=== PATIENT | female | born 1935 | race Caucasian/White ===

== ENCOUNTER 2020-12-13 09:44 | Observation (INO) | payer MEDICARE, BC ==
[2020-12-13] MEDS ORDERED: fentaNYL 50 MCG/ML SDV SUBCUT ONE (10:12)
--- NOTE | 2020-12-13 10:18 | EDM.PDOC ---
ED HPI GENERAL MEDICAL PROBLEM - General Chief Complaint: Back Pain or Injury Stated Complaint: Back Pain Time Seen by Provider: 12/13/20 10:03 Source of Information: Reports: Patient - History of Present Illness INITIAL COMMENTS - FREE TEXT/NARRATIVE: Marija is an 85 y/o female who is brought to the ER via POV by a family member for low back pain. She attempted to get into see her PCP at the [facility], but the provider was out of town. She reports that 2 weeks ago she was trying to get to her phone and while using her walker, the seat wasn't completely down adn she when she sat down she fell to the floor. She did have a couple of her kids come to home to get her up. She really did not have any pain following that incident, but over the last week she has been noticing progressively more low back pain. She did try to to take acetaminophen several times yesterday with no relief of her pain. She reports the pain is in her spine region and radiates to the left. She has had some back problems in the past and seen Dr Zapata at [facility] for an epidural injection, but this has been about 3 years ago. She denies any numbness or tingling and no loss of bowel or bladder function since the fall. 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 - Related Data Allergies Allergy/AdvReac Type Severity Reaction Status Date / Time Penicillins Allergy Rash Verified 12/13/20 09:45 Home Meds: Home Meds Esomeprazole [NexIUM] 1 cap PO DAILY 05/09/16 [History] Lisinopril/Hydrochlorothiazide [Lisinopril-Hctz 20-25 mg Tab] 1 tab PO DAILY@1400 05/09/16 [History] Multivit-Min/Iron/Folic/Lutein [Centrum Silver Women Tablet] 1 tab PO DAILY@1400 05/09/16 [History] metFORMIN [Glucophage] 500 mg PO BIDMEALS 05/09/16 [History] Cholecalciferol (Vitamin D3) [Vitamin D3] 2,000 unit PO DAILY@1400 12/13/20 [History] Diltiazem [Diltiazem XR] 240 mg PO DAILY 12/13/20 [History] Fenofibrate 54 mg PO DAILY 12/13/20 [History] Sotalol HCl [Sotalol] 120 mg PO BID@12/13/20 [History] Warfarin Sodium [Jantoven] 3 mg PO SUTUTHSA@1800 12/13/20 [History] Warfarin Sodium [Jantoven] 4 mg PO MOWEFR@1800 12/13/20 [History] Past Medical History Cardiovascular History: Reports: Arrhythmia, Hypertension Gastrointestinal History: Reports: GERD Musculoskeletal History: Reports: Arthritis Endocrine/Metabolic History: Reports: Diabetes, Type II - Past Surgical History HEENT Surgical History: Reports: Adenoidectomy, Oral Surgery, Tonsillectomy GI Surgical History: Reports: Appendectomy, Cholecystectomy Social & Family History - Caffeine Use Caffeine Use: Reports: None Review of Systems - Review of Systems Review Of Systems: See Below Constitutional: Reports: No Symptoms Eyes: Reports: No Symptoms Ears: Reports: No Symptoms Nose: Reports: No Symptoms Mouth/Throat: Reports: No Symptoms Respiratory: Reports: No Symptoms Cardiovascular: Reports: No Symptoms GI/Abdominal: Reports: No Symptoms Genitourinary: Reports: No Symptoms Musculoskeletal: Reports: Back Pain Skin: Reports: No Symptoms Neurological: Reports: No Symptoms Psychiatric: Reports: No Symptoms ED EXAM, GENERAL - Physical Exam Exam: See Below General Appearance: Alert, WD/WN, No Apparent Distress (Elderly female, sitting quietly in the wheelchair at bedside.) Ears: Hearing Grossly Normal Nose: Normal Inspection Throat/Mouth: Normal Inspection, Normal Voice Head: Atraumatic, Normocephalic Neck: Normal Inspection Respiratory/Chest: No Respiratory Distress, Lungs Clear, Chest Non-Tender Cardiovascular: Normal Peripheral Pulses, Regular Rate, Rhythm, No Murmur GI/Abdominal: Normal Bowel Sounds, Soft (Female) Exam: Deferred Rectal (Female) Exam: Deferred Back Exam: Vertebral Tenderness (noted in the lumbar region and then some tenderness off the the left in the muscle region) Extremities: Normal Inspection, Normal Capillary Refill Neurological: Alert, Oriented, CN II-XII Intact, No Motor/Sensory Deficits Course - Vital Signs Text/Narrative:: 1002 The 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 She was given Fentanyl 25mcg SQ for pain and Xrays were ordered. 1125 Patient reported decrease in her pain. Xrays reviewed. No acute fx noted, will await radiology reports. Patient lives alone and afraid she is too unsteady to be home alone. Will admit to Observation for pain management and PT eval. See orders. Last Recorded V/S: Last Vital Signs Temp 36.4 C 12/13/20 09:50 Pulse 74 12/13/20 09:50 Resp 18 12/13/20 09:50 BP 150/56 H 12/13/20 09:50 Pulse Ox 100 12/13/20 09:50 - Orders/Labs/Meds Orders: Active Orders 24 hr Category Date Time Status Patient Status [ADT] Routine ADT 12/13/20 11:26 Ordered Lumbar Spine 2 or 3V [CR] Stat Exams 12/13/20 10:13 Ordered Sacrum Coccyx Min 2V [CR] Stat Exams 12/13/20 10:13 Ordered Thoracic Spine 3V [CR] Stat Exams 12/13/20 10:13 Ordered Meds: Medications Discontinued Medications Generic Name Dose Route Start Last Admin Trade Name Freq PRN Reason Stop Dose Admin Fentanyl 25 mcg 12/13/20 10:12 12/13/20 10:20 Fentanyl 50 Mcg/Ml Sdv SUBCUT 12/13/20 10:13 25 mcg ONETIME ONE Administration - Radiology Interpretation Free Text/Narrative:: XR Thoracic Spine-no acute fx, some degenerative disease (See final report) XR Lumbar Spine-note severe spondylolisthesis of the L4-5 vertebrae with degenerative disc disease noted (See final report) XR Sacral Spine-see above (See final report) Departure - Departure Time of Disposition: 11:41 Disposition: Refer to Observation Condition: Good Clinical Impression: Acute back pain Qualifiers: Back pain location: low back pain Back pain laterality: unspecified Sciatica presence: without sciatica Qualified Code(s): M54.5 - Low back pain - Discharge Information Sepsis Event Note (ED) - Evaluation Sepsis Screening Result: No Definite Risk - Focused Exam Vital Signs: Vital Signs Temp Pulse Resp BP Pulse Ox 12/13/20 09:50 36.4 C 74 18 150/56 H 100 - Problem List & Annotations (1) Acute back pain SNOMED Code(s): 028686739, 921693598 Code(s): M54.9 - DORSALGIA, UNSPECIFIED Status: Acute Current Visit: Yes Annotation/Comment:: -Will prescribe Tramadol and Cyclobenzaprine for the back pain. -Will review final radiology reports -PT to see the patientt Qualifiers: Back pain location: low back pain Back pain laterality: unspecified Sciatica presence: without sciatica Qualified Code(s): M54.5 - Low back pain (2) Degenerative disc disease SNOMED Code(s): 70018944 Code(s): FQE7378 - Status: Acute Current Visit: Yes - Problem List Review Problem List Initiated/Reviewed/Updated: Yes - My Orders Last 24 Hours: My Active Orders 12/13/20 10:13 Lumbar Spine 2 or 3V [CR] Stat Sacrum Coccyx Min 2V [CR] Stat Thoracic Spine 3V [CR] Stat 12/13/20 11:26 Patient Status [ADT] Routine - Assessment/Plan Admission H&P: Please use this note as an admission H&P Last 24 Hours: My Active Orders 12/13/20 10:13 Lumbar Spine 2 or 3V [CR] Stat Sacrum Coccyx Min 2V [CR] Stat Thoracic Spine 3V [CR] Stat 12/13/20 11:26 Patient Status [ADT] Routine Assessment:: 1)Acute Low Back Pain Plan: As above
[2020-12-13] MEDS ORDERED: traMADol 50 MG Tab PO PRN (12:00)
[2020-12-13] MEDS ORDERED: Ondansetron 4 MG Tab.DIS PO PRN (12:00)
[2020-12-13] MEDS: Cyclobenzaprine 10 MG Tab PO SCH ×2 (14:00→21:00)
[2020-12-13] MEDS: Multivitamin Tab PO SCH (14:01)
[2020-12-13] MEDS: Lisinopril 20 MG Tab PO SCH (14:01)
[2020-12-13] MEDS: Hydrochlorothiazide 25 MG Tab PO SCH (14:01)
[2020-12-13] MEDS: Cholecalciferol (Vitamin D3) 25 MCG Tab PO SCH (14:01)
[2020-12-13] MEDS: metFORMIN 500 MG Tab PO SCH (17:10)
[2020-12-13] MEDS: Acetaminophen 325 MG Tab PO PRN (21:02)
[2020-12-13] MEDS: Sotalol 80 MG Tab PO SCH (21:02)
[2020-12-14] MEDS: Pantoprazole 40 MG Tab.CR PO SCH (07:33)
[2020-12-14] MEDS: Cyclobenzaprine 10 MG Tab PO SCH (07:34)
[2020-12-14] MEDS: Fenofibrate,Micronized 67 MG Cap PO SCH ×2 (07:34→07:42)
[2020-12-14] MEDS: Diltiazem 120 MG Cap.CD PO SCH (07:36)
[2020-12-14] MEDS: metFORMIN 500 MG Tab PO SCH ×2 (07:38→17:03)
[2020-12-14] MEDS ORDERED: FENOFIBRATE 54 MG PO SCH (08:00)
[2020-12-14] MEDS ORDERED: Non-Formulary Medication 1 Each (Esomeprazole [Nexium] 40 MG Cap) PO SCH (08:00)
[2020-12-14] MEDS: Acetaminophen 325 MG Tab PO PRN ×2 (09:43→14:14)
[2020-12-14] MEDS: Sotalol 80 MG Tab PO SCH ×2 (10:09→21:32)
[2020-12-14] MEDS ORDERED: Cyclobenzaprine 10 MG Tab PO PRN (10:47)
[2020-12-14] MEDS: predniSONE 20 MG Tab PO SCH (10:53)
--- NOTE | 2020-12-14 12:03 | PCM.PN ---
- General Info Date of Service: 12/14/20 Admission Dx/Problem (Free Text): 1)Acute Low Back Pain 2)Degenerative Disc Disease Subjective Update: Patient reports feeling a bit better this AM until she went to the bathroom and that seemed to aggravate the pain in her left lower back region. She stephens snot really like the Cyclobenzaprine due to the way it makes her drowsy. Not used much prn Tylenol or Tramadol. Has seen PT yesterday. Not quite confident to go home on her own. - Review of Systems General: Reports: No Symptoms HEENT: Reports: No Symptoms Pulmonary: Reports: No Symptoms Cardiovascular: Reports: No Symptoms Gastrointestinal: Reports: No Symptoms Genitourinary: Reports: No Symptoms Musculoskeletal: Reports: Back Pain Skin: Reports: No Symptoms Neurological: Reports: Difficulty Walking Psychiatric: Reports: No Symptoms - Patient Data Vitals - Most Recent: Last Vital Signs Temp 36.4 C 12/14/20 08:34 Pulse 73 12/14/20 10:09 Resp 18 12/14/20 09:56 BP 130/49 L 12/14/20 10:09 Pulse Ox 98 12/14/20 09:56 Weight - Most Recent: 87.543 kg I&O - Last 24 Hours: Intake & Output 12/13/20 12/14/20 12/14/20 22:59 06:59 14:59 Intake Total 220 360 Balance 220 360 Lab Results Last 24 Hours: Laboratory Results - last 24 hr 12/14/20 Range/Units 07:20 POC Glucose 144 H (70-99) mg/dL Med Orders - Current: Current Medications Acetaminophen (Acetaminophen 325 Mg Tab) 650 mg PO Q4H PRN PRN Reason: Pain (Mild 1-3)/fever Last Admin: 12/14/20 09:43 Dose: 650 mg Documented by: Cholecalciferol (Cholecalciferol (Vitamin D3) 25 Mcg Tab) 50 mcg PO DAILY@1400 [facility] Last Admin: 12/13/20 14:01 Dose: 50 mcg Documented by: Cyclobenzaprine HCl (Cyclobenzaprine 10 Mg Tab) 5 mg PO BEDTIME PRN PRN Reason: Muscle Spasm - Painful Diltiazem HCl (Diltiazem 120 Mg Cap.Cd) 240 mg PO DAILY [facility] Last Admin: 12/14/20 07:36 Dose: 240 mg Documented by: Hydrochlorothiazide (Hydrochlorothiazide 25 Mg Tab) 25 mg PO DAILY@1400 [facility] Last Admin: 12/13/20 14:01 Dose: 25 mg Documented by: Lisinopril (Lisinopril 20 Mg Tab) 20 mg PO DAILY@1400 [facility] Last Admin: 12/13/20 14:01 Dose: 20 mg Documented by: Metformin HCl (Metformin 500 Mg Tab) 500 mg PO BIDMEALS [facility] Last Admin: 12/14/20 07:38 Dose: 500 mg Documented by: Multivitamins/Minerals/Vitamin C (Multivitamin Tab) 1 tab PO DAILY@1400 [facility] Last Admin: 12/13/20 14:01 Dose: 1 tab Documented by: Ondansetron HCl (Ondansetron 4 Mg Tab.Dis) 4 mg PO Q4H PRN PRN Reason: Nausea/Vomiting Pantoprazole Sodium (Pantoprazole 40 Mg Tab.Cr) 40 mg PO DAILY [facility] Last Admin: 12/14/20 07:33 Dose: 40 mg Documented by: Prednisone (Prednisone 20 Mg Tab) 60 mg PO WITHBREAKFAST [facility] Last Admin: 12/14/20 10:53 Dose: 60 mg Documented by: Sotalol HCl (Sotalol 80 Mg Tab) 120 mg PO BID@10,22 [facility] Last Admin: 12/14/20 10:09 Dose: 120 mg Documented by: Tramadol HCl (Tramadol 50 Mg Tab) 50 mg PO Q6H PRN PRN Reason: Pain Last Admin: 12/14/20 09:54 Dose: 50 mg Documented by: Warfarin Sodium (Warfarin 1 Mg Tab) 3 mg PO SUTUTHSA@1800 [facility] Last Admin: 12/13/20 17:10 Dose: 3 mg Documented by: Warfarin Sodium (Warfarin 2 Mg Tab) 4 mg PO MOWEFR@1800 [facility] Discontinued Medications Cyclobenzaprine HCl (Cyclobenzaprine 10 Mg Tab) 5 mg PO TIDRT [facility] Last Admin: 12/14/20 07:34 Dose: 5 mg Documented by: Fenofibrate (Fenofibrate,Micronized 67 Mg Cap) 67 mg PO DAILY [facility] Last Admin: 12/14/20 07:42 Dose: Not Given Documented by: Fentanyl (Fentanyl 50 Mcg/Ml Sdv) 25 mcg SUBCUT ONETIME ONE Stop: 12/13/20 10:13 Last Admin: 12/13/20 10:20 Dose: 25 mcg Documented by: Prednisone (Prednisone 20 Mg Tab) [facility] Stop: 12/19/20 08:01 - Exam General: Alert, Oriented (Elderly female) HEENT: Pupils Equal, Mucous Membr. Moist/[place] Neck: Supple Lungs: Clear to Auscultation, Normal Respiratory Effort Cardiovascular: Regular Rate, Regular Rhythm GI/Abdominal Exam: Normal Bowel Sounds, Soft, Non-Tender (Female) Exam: Deferred Back Exam: Vertebral Tenderness (lower lumbar/sacral region), Other (+ tender to the left lower back region) Extremities: Normal Inspection, Normal Range of Motion, No Pedal Edema, Normal Capillary Refill Skin: Warm, Dry, Intact Neurological: No New Focal Deficit Psy/Mental Status: Alert, Normal Affect, Normal Mood - Patient Data Lab Results Last 24 hrs: Laboratory Results - last 24 hr 12/14/20 Range/Units 07:20 POC Glucose 144 H (70-99) mg/dL Sepsis Event Note - Evaluation Sepsis Screening Result: No Definite Risk - Focused Exam Vital Signs: Vital Signs Temp Pulse Pulse Resp BP BP BP 12/14/20 10:09 73 130/49 L 12/14/20 09:56 73 18 130/49 L 12/14/20 08:34 36.4 C 70 16 149/55 H 12/14/20 08:00 36.4 C 70 16 149/55 H 12/14/20 07:36 70 149/55 H 12/14/20 04:00 36.7 C 78 14 144/50 H Pulse Ox 12/14/20 10:09 12/14/20 09:56 98 12/14/20 08:34 98 12/14/20 08:00 98 12/14/20 07:36 12/14/20 04:00 96 - Problem List & Annotations (1) Acute back pain SNOMED Code(s): 610720541, [id number] Code(s): M54.9 - DORSALGIA, UNSPECIFIED Status: Acute Current Visit: Yes Qualifiers: Back pain location: low back pain Back pain laterality: unspecified Sciatica presence: without sciatica Qualified Code(s): M54.5 - Low back pain Annotation/Comment:: -Will change the Cyclobenzaprine to 5mg only at HS. -Encouraged more Tylenol and Tramadol use today. 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 -Supportive cares, will have PCP address possible epidural injections and specialty referral. - Problem List Review Problem List Initiated/Reviewed/Updated: Yes - My Orders Last 24 Hours: My Active Orders 12/13/20 11:26 Patient Status [ADT] Routine 12/13/20 Lunch [employer] Diet [DIET] 12/13/20 11:48 Blood Glucose Check, Bedside [RC] 0700 Oxygen Therapy [RC] .PRN Up With Assistance [RC] DAILY VTE/DVT Education [RC] DAILY Vital Signs [RC] Q4HR PT Evaluation and Treatment [CONS] Routine Resuscitation Status Routine 12/13/20 12:00 Acetaminophen [TylenoL] 650 mg PO Q4H PRN Ondansetron [Zofran ODT] 4 mg PO Q4H PRN traMADol [Ultram] 50 mg PO Q6H PRN 12/13/20 14:00 Cholecalciferol (Vitamin D3) [Vitamin D3] 50 mcg PO DAILY@1400 Multivitamins [Tab-A-Duncan] 1 tab PO DAILY@1400 hydroCHLOROthiazide 25 mg PO DAILY@1400 lisinopriL [Prinivil] 20 mg PO DAILY@1400 12/13/20 17:30 metFORMIN [Glucophage] 500 mg PO BIDMEALS 12/13/20 18:00 Warfarin [Coumadin] 3 mg PO SUTUTHSA@1800 12/13/20 22:00 Sotalol [Betapace] 120 mg PO BID@12/14/20 08:00 Diltiazem [Cardizem CD] 240 mg PO DAILY Pantoprazole [ProTONIX] 40 mg PO DAILY 12/14/20 10:46 predniSONE 60 mg PO WITHBREAKFAST 12/14/20 10:47 Cyclobenzaprine [Flexeril] 5 mg PO BEDTIME PRN 12/14/20 18:00 Warfarin [Coumadin] 4 mg PO MOWEFR@1800 - Plan Plan:: -Possible discharge to home tomorrow.
[2020-12-14] MEDS: Multivitamin Tab PO SCH (14:14)
[2020-12-14] MEDS: Cholecalciferol (Vitamin D3) 25 MCG Tab PO SCH (14:14)
[2020-12-14] MEDS: Hydrochlorothiazide 25 MG Tab PO SCH (14:14)
[2020-12-14] MEDS: Lisinopril 20 MG Tab PO SCH (14:16)
[2020-12-14] MEDS ORDERED: Warfarin 2 MG Tab PO SCH (18:00)
[2020-12-15] MEDS: Acetaminophen 325 MG Tab PO PRN ×2 (01:52→10:37)
[2020-12-15] MEDS: Diltiazem 120 MG Cap.CD PO SCH (07:41)
[2020-12-15 07:42] VITALS: PULSE 60
[2020-12-15] MEDS: Pantoprazole 40 MG Tab.CR PO SCH (07:42)
[2020-12-15] MEDS: metFORMIN 500 MG Tab PO SCH (07:42)
[2020-12-15] MEDS: predniSONE 20 MG Tab PO SCH (07:42)
[2020-12-15] MEDS ORDERED: predniSONE 20 MG Tab PO SCH (08:00)
--- NOTE | 2020-12-15 08:22 | PCM.PN ---
- General Info Date of Service: 12/15/20 Admission Dx/Problem (Free Text): 1)Acute Low Back Pain 2)Degenerative Disc Disease Subjective Update: Doing better today. Able to get to the bathroom and then back up without as much pain. She has been using Tylenol and Tramadol with good pain relief. Also has seen PT a ultrasound done a couple times to her lower back. Did have one Cyclobenzaprine 5mg tablet at HS and did not feel as drowsy this AM. Steroids started yesterday. Functional Status: Reports: Pain Controlled, Ambulating - Review of Systems General: Reports: No Symptoms HEENT: Reports: No Symptoms Pulmonary: Reports: No Symptoms Cardiovascular: Reports: No Symptoms Gastrointestinal: Reports: No Symptoms, Nausea Genitourinary: Reports: No Symptoms Musculoskeletal: Reports: Back Pain Skin: Reports: No Symptoms Neurological: Reports: No Symptoms Psychiatric: Reports: No Symptoms - Patient Data Vitals - Most Recent: Last Vital Signs Temp 36.6 C 12/15/20 07:47 Pulse 60 12/15/20 07:47 Resp 16 12/15/20 07:47 BP 155/60 H 12/15/20 07:47 Pulse Ox 100 12/15/20 07:47 Weight - Most Recent: 87.543 kg I&O - Last 24 Hours: Intake & Output 12/14/20 12/15/20 12/15/20 22:59 06:59 14:59 Intake Total 240 Balance 240 Lab Results Last 24 Hours: Laboratory Results - last 24 hr 12/15/20 Range/Units 07:34 POC Glucose 132 H (70-99) mg/dL Med Orders - Current: Current Medications Acetaminophen (Acetaminophen 325 Mg Tab) 650 mg PO Q4H PRN PRN Reason: Pain (Mild 1-3)/fever Last Admin: 12/15/20 01:52 Dose: 650 mg Documented by: Cholecalciferol (Cholecalciferol (Vitamin D3) 25 Mcg Tab) 50 mcg PO DAILY@1400 [facility] Last Admin: 12/14/20 14:14 Dose: 50 mcg Documented by: Cyclobenzaprine HCl (Cyclobenzaprine 10 Mg Tab) 5 mg PO BEDTIME PRN PRN Reason: Muscle Spasm - Painful Last Admin: 12/14/20 21:30 Dose: 5 mg Documented by: Diltiazem HCl (Diltiazem 120 Mg Cap.Cd) 240 mg PO DAILY [facility] Last Admin: 12/15/20 07:41 Dose: 240 mg Documented by: Hydrochlorothiazide (Hydrochlorothiazide 25 Mg Tab) 25 mg PO DAILY@1400 [facility] Last Admin: 12/14/20 14:14 Dose: 25 mg Documented by: Lisinopril (Lisinopril 20 Mg Tab) 20 mg PO DAILY@1400 [facility] Last Admin: 12/14/20 14:16 Dose: Not Given Documented by: Metformin HCl (Metformin 500 Mg Tab) 500 mg PO BIDMEALS [facility] Last Admin: 12/15/20 07:42 Dose: 500 mg Documented by: Multivitamins/Minerals/Vitamin C (Multivitamin Tab) 1 tab PO DAILY@1400 [facility] Last Admin: 12/14/20 14:14 Dose: 1 tab Documented by: Ondansetron HCl (Ondansetron 4 Mg Tab.Dis) 4 mg PO Q4H PRN PRN Reason: Nausea/Vomiting Pantoprazole Sodium (Pantoprazole 40 Mg Tab.Cr) 40 mg PO DAILY [facility] Last Admin: 12/15/20 07:42 Dose: 40 mg Documented by: Prednisone (Prednisone 20 Mg Tab) 60 mg PO WITHBREAKFAST [facility] Last Admin: 12/15/20 07:42 Dose: 60 mg Documented by: Sotalol HCl (Sotalol 80 Mg Tab) 120 mg PO BID@, [facility] Last Admin: 12/14/20 21:32 Dose: 120 mg Documented by: Tramadol HCl (Tramadol 50 Mg Tab) 50 mg PO Q6H PRN PRN Reason: Pain Last Admin: 12/14/20 09:54 Dose: 50 mg Documented by: Warfarin Sodium (Warfarin 1 Mg Tab) 3 mg PO SUTUTHSA@1800 [facility] Last Admin: 12/13/20 17:10 Dose: 3 mg Documented by: Warfarin Sodium (Warfarin 2 Mg Tab) 4 mg PO MOWEFR@1800 [facility] Last Admin: 12/14/20 17:03 Dose: 4 mg Documented by: Discontinued Medications Cyclobenzaprine HCl (Cyclobenzaprine 10 Mg Tab) 5 mg PO TIDRT [facility] Last Admin: 12/14/20 07:34 Dose: 5 mg Documented by: Fenofibrate (Fenofibrate,Micronized 67 Mg Cap) 67 mg PO DAILY [facility] Last Admin: 12/14/20 07:42 Dose: Not Given Documented by: Fentanyl (Fentanyl 50 Mcg/Ml Sdv) 25 mcg SUBCUT ONETIME ONE Stop: 12/13/20 10:13 Last Admin: 12/13/20 10:20 Dose: 25 mcg Documented by: Prednisone (Prednisone 20 Mg Tab) 20 mg PO QAM [facility] Stop: 12/19/20 08:01 - Patient Data Lab Results Last 24 hrs: Laboratory Results - last 24 hr 12/15/20 Range/Units 07:34 POC Glucose 132 H (70-99) mg/dL Sepsis Event Note - Evaluation Sepsis Screening Result: No Definite Risk - Focused Exam Vital Signs: Vital Signs Temp Pulse Pulse Resp BP BP BP 12/15/20 07:47 36.6 C 60 16 155/60 H 12/15/20 07:41 60 136/55 L 12/15/20 01:50 36.7 C 67 18 134/54 L 12/14/20 21:32 77 153/51 H Pulse Ox 12/15/20 07:47 100 12/15/20 07:41 12/15/20 01:50 99 12/14/20 21:32 - Problem List & Annotations (1) Acute back pain SNOMED Code(s): 444897310, [id number] Code(s): M54.9 - DORSALGIA, UNSPECIFIED Status: Acute Current Visit: Yes Qualifiers: Back pain location: low back pain Back pain laterality: unspecified Sciatica presence: without sciatica Qualified Code(s): M54.5 - Low back pain Annotation/Comment:: -Will place on Medrol Dose pack for discharge to home to finish the course of steroids. -Tramadol and Cyclobenzaprine prn pain for use at home. -Encouraged Tylenol Arthritis 2 tablets q 8hr at home. 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 -Supportive cares, will have PCP address possible epidural injections and specialty referral. - Problem List Review Problem List Initiated/Reviewed/Updated: Yes - My Orders Last 24 Hours: My Active Orders 12/14/20 08:00 Diltiazem [Cardizem CD] 240 mg PO DAILY Pantoprazole [ProTONIX] 40 mg PO DAILY 12/14/20 10:46 predniSONE 60 mg PO WITHBREAKFAST 12/14/20 10:47 Cyclobenzaprine [Flexeril] 5 mg PO BEDTIME PRN 12/14/20 18:00 Warfarin [Coumadin] 4 mg PO MOWEFR@1800 - Assessment Assessment:: As above - Plan Plan:: -Discharge to home today -RTC 1 week for recheck with PCP and possible referral for Epidural Injection or other Specialty care.
--- NOTE | 2020-12-15 08:38 | PCM.DCSUM1 ---
Discharge Summary - Hospital Course HPI Initial Comments: Marija is an 85 y/o female who had presented to the ER with low back pain. She had fallen in her apt a couple weeks ago, but denied any injury from that. The last few days her lower back pain has increased to the point that she could no longer get around her apt without help. Xrays were done in the ER an noted widespread degenerative changes. She was admitted for pain management, nursing assistance with ADLs, and physical therapy. Patient progressed well over the 2 days she was here and pain was more manageable. Steroids and muscle relaxers also augmented her pain meds. PT performed US on her low back with much relief. Diagnosis: Stroke: No - Discharge Data Discharge Date: 12/15/20 Discharge Disposition: Home, Self-Care 01 Condition: Good - Referral to Home Health Primary Care Physician: Veronica Bhardwaj NP - Discharge Diagnosis/Problem(s) (1) Acute back pain SNOMED Code(s): 481728134, [id number] ICD Code: M54.9 - DORSALGIA, UNSPECIFIED Status: Acute Current Visit: Yes Problem Details: -Will place on Medrol Dose pack for discharge to home to finish the course of steroids. -Tramadol and Cyclobenzaprine prn pain for use at home. -Encouraged Tylenol Arthritis 2 tablets q 8hr at home. 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 -Supportive cares, will have PCP address possible epidural injections and specialty referral. - Patient Summary/Data Consults: Consultations 12/13/20 11:48 PT Evaluation and Treatment [CONS] Routine - Patient Instructions Diet: Diabetic Diet Activity: As Tolerated Showering/Bathing: October Shower Notify Provider of: Increased Pain - Discharge Plan *PRESCRIPTION DRUG MONITORING PROGRAM REVIEWED*: No *COPY OF PRESCRIPTION DRUG MONITORING REPORT IN PATIENT KEITH: No Prescriptions/Med Rec: Cyclobenzaprine [Flexeril] 5 mg PO BEDTIME PRN #15 tab PRN Reason: Muscle Spasm - Painful methylPREDNISolone [Medrol Dose Pack] 4 mg PO ASDIRECTED #21 dospk traMADol [Ultram] 50 mg PO Q6H PRN #30 tab PRN Reason: Pain Home Medications: Home Meds Esomeprazole [NexIUM] 1 cap PO DAILY 05/09/16 [History] Lisinopril/Hydrochlorothiazide [Lisinopril-Hctz 20-25 mg Tab] 1 tab PO DAILY@1400 05/09/16 [History] Multivit-Min/Iron/Folic/Lutein [Centrum Silver Women Tablet] 1 tab PO DAILY@1400 05/09/16 [History] metFORMIN [Glucophage] 500 mg PO BIDMEALS 05/09/16 [History] Cholecalciferol (Vitamin D3) [Vitamin D3] 2,000 unit PO DAILY@1400 12/13/20 [History] Diltiazem [Diltiazem XR] 240 mg PO DAILY 12/13/20 [History] Fenofibrate 54 mg PO DAILY 12/13/20 [History] Sotalol HCl [Sotalol] 120 mg PO BID@12/13/20 [History] Warfarin Sodium [Jantoven] 3 mg PO SUTUTHSA@1800 12/13/20 [History] Warfarin Sodium [Jantoven] 4 mg PO MOWEFR@1800 12/13/20 [History] Cyclobenzaprine [Flexeril] 5 mg PO BEDTIME PRN #15 tab 12/15/20 [Rx] methylPREDNISolone [Medrol Dose Pack] 4 mg PO ASDIRECTED #21 dospk 12/15/20 [Rx] traMADol [Ultram] 50 mg PO Q6H PRN #30 tab 12/15/20 [Rx] Oxygen Therapy Mode: Room Air Forms: ED Department Discharge Referrals: Veronica Bhardwaj NP [Primary Care Provider] - - Discharge Summary/Plan Comment DC Time >30 min.: Yes - Patient Data Vitals - Most Recent: Last Vital Signs Temp 36.6 C 12/15/20 07:47 Pulse 60 12/15/20 07:47 Resp 16 12/15/20 07:47 BP 155/60 H 12/15/20 07:47 Pulse Ox 100 12/15/20 07:47 Weight - Most Recent: 87.543 kg I&O - Last 24 hours: Intake & Output 12/14/20 12/15/20 12/15/20 22:59 06:59 14:59 Intake Total 240 Balance 240 Lab Results - Last 24 hrs: Laboratory Results - last 24 hr 12/15/20 Range/Units 07:34 POC Glucose 132 H (70-99) mg/dL Med Orders - Current: Current Medications Acetaminophen (Acetaminophen 325 Mg Tab) 650 mg PO Q4H PRN PRN Reason: Pain (Mild 1-3)/fever Last Admin: 12/15/20 01:52 Dose: 650 mg Documented by: Cholecalciferol (Cholecalciferol (Vitamin D3) 25 Mcg Tab) 50 mcg PO DAILY@1400 [facility] Last Admin: 12/14/20 14:14 Dose: 50 mcg Documented by: Cyclobenzaprine HCl (Cyclobenzaprine 10 Mg Tab) 5 mg PO BEDTIME PRN PRN Reason: Muscle Spasm - Painful Last Admin: 12/14/20 21:30 Dose: 5 mg Documented by: Diltiazem HCl (Diltiazem 120 Mg Cap.Cd) 240 mg PO DAILY [facility] Last Admin: 12/15/20 07:41 Dose: 240 mg Documented by: Hydrochlorothiazide (Hydrochlorothiazide 25 Mg Tab) 25 mg PO DAILY@1400 [facility] Last Admin: 12/14/20 14:14 Dose: 25 mg Documented by: Lisinopril (Lisinopril 20 Mg Tab) 20 mg PO DAILY@1400 [facility] Last Admin: 12/14/20 14:16 Dose: Not Given Documented by: Metformin HCl (Metformin 500 Mg Tab) 500 mg PO BIDMEALS [facility] Last Admin: 12/15/20 07:42 Dose: 500 mg Documented by: Multivitamins/Minerals/Vitamin C (Multivitamin Tab) 1 tab PO DAILY@1400 [facility] Last Admin: 12/14/20 14:14 Dose: 1 tab Documented by: Ondansetron HCl (Ondansetron 4 Mg Tab.Dis) 4 mg PO Q4H PRN PRN Reason: Nausea/Vomiting Pantoprazole Sodium (Pantoprazole 40 Mg Tab.Cr) 40 mg PO DAILY [facility] Last Admin: 12/15/20 07:42 Dose: 40 mg Documented by: Prednisone (Prednisone 20 Mg Tab) 60 mg PO WITHBREAKFAST [facility] Last Admin: 12/15/20 07:42 Dose: 60 mg Documented by: Sotalol HCl (Sotalol 80 Mg Tab) 120 mg PO BID@10, [facility] Last Admin: 12/14/20 21:32 Dose: 120 mg Documented by: Tramadol HCl (Tramadol 50 Mg Tab) 50 mg PO Q6H PRN PRN Reason: Pain Last Admin: 12/14/20 09:54 Dose: 50 mg Documented by: Warfarin Sodium (Warfarin 1 Mg Tab) 3 mg PO SUTUTHSA@1800 [facility] Last Admin: 12/13/20 17:10 Dose: 3 mg Documented by: Warfarin Sodium (Warfarin 2 Mg Tab) 4 mg PO MOWEFR@1800 [facility] Last Admin: 12/14/20 17:03 Dose: 4 mg Documented by: Discontinued Medications Cyclobenzaprine HCl (Cyclobenzaprine 10 Mg Tab) 5 mg PO TIDRT [facility] Last Admin: 12/14/20 07:34 Dose: 5 mg Documented by: Fenofibrate (Fenofibrate,Micronized 67 Mg Cap) 67 mg PO DAILY [facility] Last Admin: 12/14/20 07:42 Dose: Not Given Documented by: Fentanyl (Fentanyl 50 Mcg/Ml Sdv) 25 mcg SUBCUT ONETIME ONE Stop: 12/13/20 10:13 Last Admin: 12/13/20 10:20 Dose: 25 mcg Documented by: Prednisone (Prednisone 20 Mg Tab) 20 mg PO QAM [facility] Stop: 12/19/20 08:01
[2020-12-15] MEDS: Sotalol 80 MG Tab PO SCH (10:37)
[2020-12-15 10:39] VITALS: BP 136/55
== END 2020-12-15 10:45 | disposition home or self-care (01) ==
LOC: LL.ED 09:44 → LL.MS 11:29
PROVIDERS: ADMIT Nurse Practitioner Family; ATTEND Nurse Practitioner Family
DX: M54.5 Low back pain (principal); E11.9 Type 2 diabetes mellitus without complications; K21.9 Gastro-esophageal reflux disease without esophagitis; I10 Essential (primary) hypertension; Z79.84 Long term (current) use of oral hypoglycemic drugs; Z88.0 Allergy status to penicillin; Z79.899 Other long term (current) drug therapy; Z79.02 Long term (current) use of antithrombotics/antiplatelets; Z90.49 Acquired absence of other specified parts of digestive tract; Z98.890 Other specified postprocedural states; W19.XXXA Unspecified fall, initial encounter
CPT/HCPCS: 72072; 72100; 72220; 82947; 96372; 97035-GP; 97162-GP; 97530-GP; 99284-25; A9270-GY; G0283-GP; G0378; J3010; J7512